=== PATIENT | male | born 1985 | race Caucasian/White ===

== ENCOUNTER 2024-04-21 23:06 | Emergency (ER) | payer BC ==
[~2024-04-21] VITALS: Ht 180.3 cm; Wt 82.0 kg
[2024-04-21] MEDS ORDERED: SODIUM CHLORIDE 0.9% 1,000 ML IV ONE ×2 (23:15→23:50)
[2024-04-21] MEDS ORDERED: amioDARONE HCl 450 MG in SODIUM CHLORIDE 250 ML IV ONE (23:15)
[2024-04-21] MEDS ORDERED: SODIUM CHLORIDE 0.9% 250 ML IV PRN ×2 (23:15)
[2024-04-21] MEDS ORDERED: PROPOFOL 100 ML IV ONE (23:20)
[2024-04-21] MEDS ORDERED: ASPIRIN 81 MG/TAB PO ONE (23:30)
[2024-04-21 23:33] LABS: BASO% 0.1 % (0-3); HEMATOCRIT 43.3 % (39.0-50.0); HEMOGLOBIN 13.1 g/dl (14.0-18.0); MEAN CELL VOLUME 85.9 fL CALC (80.0-100.0); MEAN CORPUSCULAR HGB CONC 30.3 g/dL CAL (32.0-36.0); MONO% 8.8 % (2-13); NEUT# 6.86 thou/uL (1.82-7.42); RED BLOOD COUNT 5.04 mill/uL (4.70-6.10)
[2024-04-21 23:48] LABS: ALBUMIN 4.1 g/dL (3.2-5.0); ALKALINE PHOSPHATASE 213 u/l (38-126); ANION GAP 26 (6-22 (CALC)); BILIRUBIN, TOTAL 0.4 mg/dL (0.2-1.3); BUN 12 mg/dL (9-20); BUN/CREATININE RATIO 15 (12-20 (CALC)); CARBON DIOXIDE 15 mmol/l (22-30); CHLORIDE 103 mmol/l (95-108); CREATININE 0.8 mg/dL (0.7-1.3); ESTIMATED GFR 115 ML/MIN (>=90 (CALC)); ETHYL ALCOHOL 0 mg/dl (0-30); LIPASE 204 u/l (23-300); POTASSIUM 3.3 mmol/l (3.5-5.1); SGOT/AST 75 u/l (17-59); SODIUM 141 mmol/l (137-146); TOTAL PROTEIN 7.3 g/dL (6.3-8.2)
[2024-04-21 23:55] LABS: LYMPH% 48.1 % (15-41)
[2024-04-22 00:05] LABS: ACT PARTIAL THROMBO TIME 27.5 SECONDS (20.0-32.5); D-DIMER 10.58 mg/L (0.19-0.60); INTERNATIONAL NORMALIZED RATIO 1.1 RATIO (0.7-1.3); PROTHROMBIN TIME 12.2 SECONDS (9.0-12.5)
[2024-04-22] MEDS ORDERED: LORazepam 2 MG/ML IV ONE (00:20)
[2024-04-22 00:31] LABS: URINE BILIRUBIN - DIPSTICK Negative (NEGATIVE); URINE BLOOD DIPSTICK Moderate (NEGATIVE); URINE COLOR Yellow; URINE GLUCOSE - DIPSTICK 100 mg/dL (NEGATIVE); URINE KETONE Negative (NEGATIVE); URINE LEUK ESTERASE Negative (NEGATIVE); URINE NITRITE - DIPSTICK Negative (Negative); URINE PROTEIN - DIPSTICK >=300 mg/dL (NEG-TRACE); URINE SPECIFIC GRAVITY 1.025; URINE UROBILINOGEN - DIPSTICK 0.2 E.U./dL (0.2)
[2024-04-22 00:42] LABS: URINE MUCUS FEW hpf (NONE-FEW); URINE WBC 0-2 WBC/hpf (0-5)
[2024-04-22 00:51] VITALS: BP 168/97
[2024-04-22] MEDS ORDERED: PROPOFOL 100 ML IV ONE (01:02)
[2024-04-22 01:30] VITALS: BP 116/75
== END 2024-04-22 01:30 | disposition short-term general hospital (02) | DRG 310 ==
LOC: ED 23:06
PROVIDERS: Family Medicine
PROC: 5A1935Z Respiratory Ventilation, Less than 24 Consecutive Hours (ICD-10-PCS; principal; 2024-04-21)
PROC: 0T9B70Z Drainage of Bladder with Drainage Device, Via Natural or Artificial Opening (ICD-10-PCS; 2024-04-21)
DX: I49.01 Ventricular fibrillation (principal); I25.2 Old myocardial infarction; Z87.891 Personal history of nicotine dependence; Z95.5 Presence of coronary angioplasty implant and graft; Z20.822 Contact with and (suspected) exposure to COVID-19
CPT/HCPCS: J0282; J0696; J2060; Q9967